=== PATIENT | male | born 1980 | race Two or more races ===

== ENCOUNTER → 2022-01-05 | Outpatient (CLI) | payer OTHER ==
--- NOTE | 2022-01-05 14:26 | RAD ---
EXAMINATION: MRI LEFT ANKLE/HINDFOOT WITHOUT IV CONTRAST CLINICAL HISTORY: Left foot pain concerning for plantar fascial tear. TECHNIQUE: Multiplanar multisequential images obtained through the ankle/hindfoot without intravenous contrast. COMPARISON: None FINDINGS: Anterior Talofibular Ligament: Within normal limits. Posterior Talofibular Ligament: Within normal limits. Anterior-Inferior Tibiofibular Ligament: Within normal limits. Posterior Tibiofibular Ligament: Within normal limits. Calcaneofibular Ligament: Within normal limits. Deltoid Ligament: Within normal limits. Spring Ligament: Within normal limits. Posterior Tibial Tendon: Within normal limits. Flexor Digitorum Longus Tendon: Within normal limits. Flexor Hallucis Longus Tendon: Within normal limits. Peroneal Tendons: Within normal limits. Extensor Tendons: Within normal limits. Achilles Tendon: Within normal limits. Bone Marrow: No acute fracture or suspicious marrow replacing process. Subchondral marrow reactive/cy stic changes in the lateral cuneiform and third metatarsal base at the TMT joint. Talar Dome: Within normal limits. Plantar Fascia: Mild thickening and increased signal in the central band at the calcaneal attachment with fiber irregularity along the dorsal lateral margin. Tiny full-thickness fissure proximal to the branching of the central and lateral bands. Subjacent and minimal overlying soft tissue edema at the calcaneal attachment. Mild focal marrow edema at the calcaneal attachment. Tarsal Tunnel/Sinus Tarsi: Within normal limits. Joint Fluid: No joint effusion or synovitis. IMPRESSION: Plantar fasciitis with superimposed partial-thickness tearing along the dorsal fascial margin at the calcaneal attachment and adjacent tiny full-thickness fissure as described. Electronically signed by: Aren Mccarthy DO (01/05/2022 2:23 PM) [id number]
== END ==
LOC: MRI 10:48
PROVIDERS: ATTEND Family Medicine
DX: M79.672 Pain in left foot (principal); M26.9 Dentofacial anomaly, unspecified; M72.2 Plantar fascial fibromatosis; M62.89 Other specified disorders of muscle
CPT/HCPCS: 73718